=== PATIENT | male | born 1970 | race Caucasian/White ===

== ENCOUNTER 2023-08-11 14:38 | Outpatient (CLI) | payer BC | END 2023-08-11 14:39 | disposition home or self-care (01) | LOC: CSHRAD 14:38 | PROVIDERS: ATTEND Family Medicine | DX: R05.9 Cough, unspecified (principal); J98.4 Other disorders of lung | CPT/HCPCS: 71046 ==

== ENCOUNTER 2023-08-19 08:26 | Outpatient (CLI) | payer OTHER ==
[2023-08-19] MEDS ORDERED: Iopamidol 300 61% 100 ML VIAL FS ONE (09:01)
== END 2023-08-19 08:27 | disposition home or self-care (01) ==
LOC: CSHCT 08:26
PROVIDERS: ATTEND Family Medicine
DX: R91.1 Solitary pulmonary nodule (principal); J84.10 Pulmonary fibrosis, unspecified; R16.2 Hepatomegaly with splenomegaly, not elsewhere classified; K76.0 Fatty (change of) liver, not elsewhere classified; Z90.49 Acquired absence of other specified parts of digestive tract
CPT/HCPCS: 71260; Q9967

== ENCOUNTER 2023-12-12 14:29 | Outpatient (CLI) | payer OTHER | END 2023-12-12 14:30 | disposition home or self-care (01) | LOC: CSHRAD 14:29 | PROVIDERS: ATTEND Family Medicine | DX: R05.9 Cough, unspecified (principal) | CPT/HCPCS: 71046 ==